=== PATIENT | female | born 1985 | race Caucasian/White ===

== ENCOUNTER 2017-02-11 09:00 | Inpatient (IN) | payer OTHER ==
[~2017-02-11] VITALS: Ht 162.6 cm; Wt 69.6 kg
[2017-02-11 10:32] LABS: BASOPHIL % 0.3 % (0-2); PLATELET COUNT 245 x10^3mcL (130-400); RED CELL DISTRIBUTION WIDTH 13.4 % (11.5-14.5)
[2017-02-11 10:38] LABS: CALCIUM 8.8 mg/dL (8.5-10.1); CARBON DIOXIDE 22.9 mmol/L (21-32); CHLORIDE SERUM 103 mmol/L (98-107); CREATININE SERUM 0.7 mg/dL (0.6-1.0); GFR1 > 60 mL/min; GLUCOSE SERUM 101 mg/dL (74-106); POTASSIUM SERUM 3.6 mmol/L (3.5-5.1); SODIUM SERUM 136 mmol/L (136-145)
[2017-02-11 10:42] LABS: ALKALINE PHOSPHATASE 103 U/L (46-116); ALT/SGPT 25 U/L (14-59); AST/SGOT 22 U/L (15-37); BILIRUBIN TOTAL 0.36 mg/dL (0.20-1.00); LIPASE 106 IU/L (73-393)
[2017-02-11 10:44] LABS: ALBUMIN 2.8 g/dL (3.4-5.0)
[2017-02-11 12:55] LABS: UA SPECIFIC GRAVITY 1.005 (1.005-1.035)
[2017-02-11 12:56] LABS: microscopic required? YES; urine erythrocyte 2+ (NEGATIVE)
[2017-02-11 13:25] LABS: MAGNESIUM 1.9 mg/dL (1.8-2.4); PHOSPHOROUS 3.6 mg/dL (2.5-4.9)
[2017-02-11 13:26] LABS: CHOLESTEROL/HDL RATIO 2.6
[2017-02-11 13:46] LABS: FREE T4 1.25 ng/dL (0.76-1.46); FREE THYROXINE INDEX 3.4 ug/dL (1.4-4.5); T4(THYROXINE) 11.1 ug/dL (4.7-13.3)
[2017-02-11 13:49] LABS: T3 TOTAL 1.04 ng/mL
[2017-02-11 14:02] VITALS: BP 104/71
[2017-02-11 15:26] LABS: AMPHETAMINE QUAL UR NONE DETECTED (NEG <=1000)
[2017-02-11 17:03] VITALS: BP 98/64
[2017-02-11 20:43] VITALS: BP 93/64
[2017-02-12 06:04] VITALS: BP 94/50
[2017-02-12 07:03] LABS: BASOPHIL % 0.4 % (0-2); PLATELET COUNT 196 x10^3mcL (130-400); RED CELL DISTRIBUTION WIDTH 13.4 % (11.5-14.5)
[2017-02-12 07:04] LABS: CALCIUM 8.3 mg/dL (8.5-10.1); CARBON DIOXIDE 21.1 mmol/L (21-32); CHLORIDE SERUM 109 mmol/L (98-107); CREATININE SERUM 0.6 mg/dL (0.6-1.0); GFR1 > 60 mL/min; GLUCOSE SERUM 94 mg/dL (74-106); MAGNESIUM 1.9 mg/dL (1.8-2.4); PHOSPHOROUS 3.5 mg/dL (2.5-4.9); POTASSIUM SERUM 3.7 mmol/L (3.5-5.1); SODIUM SERUM 141 mmol/L (136-145)
[2017-02-12 09:28] VITALS: BP 102/70
[2017-02-12 13:57] VITALS: BP 111/74
[2017-02-12] MEDS ORDERED: CIPROFLOXACIN250 M2 PO (14:17)
[2017-02-12] MEDS ORDERED: ACIDOPHILUS CA1 EAC1 PO (14:18)
[2017-02-12] MEDS ORDERED: MAC100 PO (14:55)
[2017-02-12 15:48] VITALS: BP 111/74
[2017-02-12] MEDS ORDERED: CEPHALEXIN500 MG PO (16:50)
== END 2017-02-12 17:30 | disposition home or self-care (01) | DRG 872 ==
LOC: ED 09:00 → DU 12:17
PROVIDERS: Emergency Medicine; ADMIT Family Medicine
DX: A41.9 Sepsis, unspecified organism (principal); N39.0 Urinary tract infection, site not specified; E44.0 Moderate protein-calorie malnutrition; E78.5 Hyperlipidemia, unspecified; D64.9 Anemia, unspecified; E05.80 Other thyrotoxicosis without thyrotoxic crisis or storm; E87.8 Other disorders of electrolyte and fluid balance, not elsewhere classified; E66.3 Overweight; Z68.26 Body mass index [BMI] 26.0-26.9, adult
CPT/HCPCS: 83880; 84439; J0290; J0696; J1580; J2210; J2405; J3010; J7030; Q0092